=== PATIENT | female | born 1940 ===

== ENCOUNTER 2023-05-03 08:46 | Outpatient (CLI) | payer OTHER ==
[~2023-05-03 08:46] MED LIST: ALPRAZOLAM1 M1; BUPROPION XL300 MG; CLONAZEPAM0.5 MG; ESCITALOPRAM OX10 MG; METFORMIN HCL500 M2; SYNTHROID88 MCG
== END 2023-05-03 08:52 | disposition home or self-care (01) ==
LOC: RX STUDY 08:46
PROVIDERS: ATTEND Internal Medicine Gastroenterology
DX: K21.9 Gastro-esophageal reflux disease without esophagitis (principal); K30 Functional dyspepsia